=== PATIENT | female | born 1970 | race Two or more races ===

== ENCOUNTER 2022-06-15 16:08 | Inpatient (IN) | payer OTHER ==
[2022-06-15 16:16] VITALS: BMI 31.1
[2022-06-15] MEDS ORDERED: ASPIRIN 81 MG CHEWABLE TABLETS PO ONE ×2 (16:21→19:01)
[2022-06-15] MEDS ORDERED: ASPIRIN 81 MG CHEWABLE TABLETS ONE ×2 (17:00→19:29)
[2022-06-15 17:11] LABS: HEMATOCRIT 37.1 % (32.4-45.2); HEMOGLOBIN 12.6 G/dL (10.7-15.3); MCH 28.5 pg (25.7-33.7); MEAN CELL VOLUME 83.7 fl (80-96); MEAN PLT VOLUME 8.1 fl (7.5-11.1); PLATELET COUNT 328.4 10^3/uL (134-434); RBC 4.43 10^6/uL (3.60-5.2); RDW 14.8 % (11.6-15.6); WHITE BLOOD COUNT 12.6 10^3/uL (4.0-10.8)
[2022-06-15 17:13] LABS: INR 0.94 (0.83-1.09); PROTHROMBIN TIME (PATIENT) 10.8 SEC (9.7-13.0)
[2022-06-15 17:16] LABS: ACTIVATED PTT 24.5 SECONDS (25.2-36.5)
[2022-06-15 17:20] LABS: ALBUMIN 4.4 g/dl (3.4-5.0); ALK PHOS 97 U/L (45-117); ANION GAP 10 MMOL/L (8-16); BILIRUBIN,TOTAL 0.5 mg/dl (0.2-1); CALCIUM 9.4 mg/dl (8.5-10); CHLORIDE 99 mmol/L (98-107); CO2 26 mmol/L (21-32); CREATININE 0.8 mg/dl (0.55-1.3); GLUCOSE,RANDOM 114 mg/dl (74-106); SGOT/AST 24 U/L (15-37); SGPT/ALT 15 U/L (13-61); SODIUM 135 mmol/L (136-145); TOT PROT 8.6 g/dl (6.4-8.2)
[2022-06-15] MEDS ORDERED: HEPARIN NA (PORCINE) 5,000 UNITS/ML 1ML VIAL IVPUSH PRN ×2 (19:04)
[2022-06-15] MEDS ORDERED: HEPARIN INFUSION - 25,000 UNITS/500 ML INFUS.BAG IVPB ONE (19:24)
[2022-06-15] MEDS: HEPARIN INFUSION - 25,000 UNITS/500 ML INFUS.BAG IVPB SCH (19:50)
[2022-06-15] MEDS ORDERED: NITROGLYCERIN SUBLINGUAL 1/150 0.4 MG TAB SL ONE ×2 (19:58→21:11)
[2022-06-15] MEDS ORDERED: NITROGLYCERIN SUBLINGUAL 1/150 0.4 MG TAB ONE ×2 (20:01→21:17)
[2022-06-15] MEDS ORDERED: METOPROLOL TARTRATE 25 MG TABLET (FP) PO ONE (21:11)
[2022-06-15] MEDS ORDERED: CLOPIDOGREL BISULFATE 300 MG TABLET PO ONE (21:13)
[2022-06-15] MEDS ORDERED: CLOPIDOGREL BISULFATE 300 MG TABLET ONE (21:17)
[2022-06-15] MEDS ORDERED: METOPROLOL TARTRATE 25 MG TABLET (FP) ONE (21:17)
[2022-06-15 22:12] LABS: PLATELET ESTIMATE ADEQUATE
[2022-06-16 05:02] LABS: EPI CELLS 16 /uL (0-25.1); HYALINE CASTS 1 /uL (0-3.1); URINE APPEARANCE CLEAR; URINE BACTERIA >9,000 /uL (0-1359); URINE BILIRUBIN NEGATIVE (NEGATIVE); URINE COLOR YELLOW; URINE GLUCOSE (UA) NEGATIVE (NEGATIVE); URINE KETONE NEGATIVE (NEGATIVE); URINE LEUK ESTERASE 1+ (NEGATIVE); URINE NITRITE NEGATIVE (NEGATIVE); URINE PROTEIN NEGATIVE (NEGATIVE); URINE RBC 13 /uL (0-23.9); URINE UROBILINOGEN 0.2 mg/dL (0.2-1.0); URINE WBC 56 /uL (0-25.8)
[2022-06-16 08:32] LABS: BASO % 0.6 % (0-2.0); EOS % 0.7 % (0-4.5); HEMATOCRIT 34.5 % (32.4-45.2); HEMOGLOBIN 11.7 GM/dL (10.7-15.3); LYMPH % 41.3 % (8-40); MCH 28.2 pg (25.7-33.7); MEAN PLT VOLUME 7.9 fl (7.5-11.1); MONO % 8.3 % (3.8-10.2); NEUT % 49.1 % (42.8-82.8); PLATELET COUNT 379 10^3/uL (134-434); RBC 4.16 M/mm3 (3.60-5.2); RDW 14.7 % (11.6-15.6); WHITE BLOOD COUNT 7.8 K/mm3 (4.0-10.0)
[2022-06-16 08:51] LABS: CHOLESTEROL 191 mg/dL (50-200); TRIGLYCERIDES 108 mg/dL (0-150)
[2022-06-16 08:53] LABS: LDL CHOLESTEROL (ONLY SJRH) 107 mg/dL (5-100)
[2022-06-16 08:55] LABS: HDL CHOLESTEROL 61 mg/dL (40-60)
[2022-06-16 09:04] LABS: ALBUMIN 3.4 g/dl (3.4-5.0); BLOOD UREA NITROGEN 10.8 mg/dL (7-18); CALCIUM 8.8 mg/dL (8.5-10.1); MAGNESIUM 2.1 mg/dL (1.8-2.4)
[2022-06-16 09:08] LABS: BILIRUBIN,TOTAL 0.7 mg/dL (0.2-1); CREATININE 0.6 mg/dL (0.55-1.3); PHOSPHOROUS 3.4 mg/dL (2.5-4.9); TOT PROT 7.4 g/dl (6.4-8.2)
[2022-06-16] MEDS ORDERED: LOSARTAN POTASSIUM 25 MG TABLET PO SCH (10:00)
[2022-06-16] MEDS: ASPIRIN COATED 81 MG TABLET.EC PO SCH (10:06)
[2022-06-16] MEDS ORDERED: METOPROLOL TARTRATE 25 MG TABLET (FP) PO SCH (11:30)
[2022-06-16] MEDS: CLOPIDOGREL BISULFATE 75 MG TABLET (FP) PO SCH (12:04)
[2022-06-16] MEDS: METOPROLOL TARTRATE 25 MG TABLET (FP) PO SCH ×2 (12:05→21:07)
[2022-06-16] MEDS: HEPARIN INFUSION - 25,000 UNITS/500 ML INFUS.BAG IVPB SCH ×3 (13:33→22:37)
[2022-06-16] MEDS ORDERED: ACETAMINOPHEN 325 MG TABLET (FP) PO ONE (15:42)
[2022-06-16 18:59] VITALS: RESP 18
[2022-06-16] MEDS ORDERED: ATORVASTATIN CA 80 MG TABLET (FP) PO SCH (22:00)
[2022-06-17] MEDS ORDERED: TRIMETHOBENZAMIDE HCL 200MG/2ML INJ IM PRN (08:04)
[2022-06-17 08:24] LABS: HEMATOCRIT 35.5 % (32.4-45.2); HEMOGLOBIN 11.7 GM/dL (10.7-15.3); MCH 27.4 pg (25.7-33.7); MCHC 33.1 g/dl (32.0-36.0); MEAN CELL VOLUME 82.8 fl (80-96); MEAN PLT VOLUME 8.1 fl (7.5-11.1); PLATELET COUNT 389 10^3/uL (134-434); RBC 4.28 M/mm3 (3.60-5.2); RDW 14.5 % (11.6-15.6); WHITE BLOOD COUNT 7.2 K/mm3 (4.0-10.0)
[2022-06-17 08:35] LABS: ALBUMIN 3.2 g/dl (3.4-5.0); BLOOD UREA NITROGEN 12.3 mg/dL (7-18); CALCIUM 8.7 mg/dL (8.5-10.1)
[2022-06-17 08:36] LABS: MAGNESIUM 2.1 mg/dL (1.8-2.4)
[2022-06-17 08:38] LABS: CREATININE 0.7 mg/dL (0.55-1.3); PHOSPHOROUS 3.7 mg/dL (2.5-4.9)
[2022-06-17 08:40] LABS: BILIRUBIN,TOTAL 0.6 mg/dL (0.2-1)
[2022-06-17] MEDS ORDERED: METOPROLOL TARTRATE 25 MG TABLET (FP) PO SCH (10:00)
[2022-06-17] MEDS: CLOPIDOGREL BISULFATE 75 MG TABLET (FP) PO SCH (10:13)
[2022-06-17] MEDS: METOPROLOL TARTRATE 25 MG TABLET (FP) PO SCH (10:13)
[2022-06-17] MEDS: ASPIRIN COATED 81 MG TABLET.EC PO SCH (10:13)
[2022-06-17 12:41] VITALS: BP 119/70; PULSE 60; TEMP 98.7
== END 2022-06-17 15:33 | disposition short-term general hospital (02) | DRG 190 ==
LOC: FER 16:08 → J4W 06-16 00:30
PROVIDERS: ADMIT Internal Medicine Cardiovascular Disease; ATTEND Internal Medicine
DX: I21.4 Non-ST elevation (NSTEMI) myocardial infarction (principal); I47.20 Ventricular tachycardia, unspecified; E66.9 Obesity, unspecified; Z68.31 Body mass index [BMI] 31.0-31.9, adult; D72.829 Elevated white blood cell count, unspecified
CPT/HCPCS: 36415; 71046-TC-FY; 80053; 80061; 81003; 82550; 82553; 83036; 83735; 84100; 84443; 84484; 84703; 85025; 85027; 85379; 85610; 85730; 93005; 93010; 93306-TC; 99285-25; C9803-CS; J1644; U0003; U0005